=== PATIENT | female | born 1985 | race Caucasian/White ===

== ENCOUNTER 2016-04-28 05:52 | Emergency (ER) | payer OTHER ==
[~2016-04-28] VITALS: Ht 157.5 cm; Wt 63.5 kg
[2016-04-28 05:57] VITALS: BP 116/78
[2016-04-28] MEDS ORDERED: IBUPROFEN600 M1 PO (05:57)
[2016-04-28] MEDS ORDERED: PERCOCET 5-3251 EACH PO (05:57)
[2016-04-28] MEDS ORDERED: AUGMENTIN 875-1 EACH PO (05:57)
--- NOTE | 2016-04-28 05:57 | ED THROAT/DENTAL COMPLAINT ---
History of Present Illness General Chief Complaint: Sore Throat, Dental Pain Stated Complaint: "I HAVE TOOTH PAIN" Source: patient Exam Limitations: no limitations Vital Signs & Intake/Output Vital Signs & Intake/Output Vital Signs Date Time Temp Pulse Resp B/P Pulse O2 O2 Flow FiO2 Ox Delivery Rate 04/28 0557 98.1 106 18 116/78 98 Room Air Allergies Coded Allergies: NO KNOWN ALLERGIES (11/17/13) Reconcile Medications Amoxicillin/Potassium Clav (Augmentin 875-125 Tablet) 875 MG-125 MG TABLET 1 TAB PO BID dental infection x 10 days Ibuprofen 600 MG TABLET 1 TAB PO TID PRN pain with food Oxycodone HCl/Acetaminophen (Percocet 5-325 MG Tablet) 5 MG-325 MG TABLET 1 TAB PO 4XDP PRN PAIN six...[id number] Triage Note: PT TO TRIAGE C/O TOOTH PAIN. PT RECENTLY HAD A CROWN PUT AND HAD MULTIPLE ROOT CANALS AND COULD NOT DEAL WITH THE PAIN AFTER TAKING IBUPROFEN AND TYLENOL. PT NOW COMPLAINING OF RIGHT SIDED FACE PAIN THAT RADIATES UP TO NOSE. Triage Nurses Notes Reviewed? yes Onset: Gradual Duration: day(s): Timing: recent history Injury Environment: home Severity: moderate Modifying Factors: Improves With: medication. Associated Symptoms: right lower dental pain HPI: 30-year-old woman presents with right lower jaw pain. She states that she has a temporary crown over one of the molars. Last night it began hurting. She took some Tylenol and then some Motrin. This morning she felt like the pain got much worse. She thinks it might be infected. She's been having close follow-up with her dentist due to recurrent dental issues. She has no fever chills. She has no difficulty swallowing or eating or speaking. She is otherwise well. Past History Travel History Traveled to [place] past 21 day No Medical History Any Pertinent Medical History? see below for history Neurological: seizure Surgical History Surgical History: non-contributory Psychosocial History What is your primary language Russian Family History Hx Contributory? No Review of Systems Review of Systems Constitutional: Reports: no symptoms. EENTM: Reports: no symptoms. Respiratory: Reports: no symptoms. Cardiovascular: Reports: no symptoms. GI: Reports: no symptoms. Genitourinary: Reports: no symptoms. Musculoskeletal: Reports: no symptoms. Skin: Reports: no symptoms. Neurological/Psychological: Reports: no symptoms. Hematologic/Endocrine: Reports: no symptoms. Immunologic/Allergic: Reports: no symptoms. All Other Systems: Reviewed and Negative Physical Exam Physical Exam General Appearance: well developed/nourished, mild distress Head: atraumatic, normal appearance Eyes: Bilateral: normal appearance. Nose: normal inspection Mouth/Throat: pharynx normal, right lower jaw with temporary cap over one of the molars. Diffuse tenderness along the right lower gumline. No dottie abscess. No discharge. Neurologic/Psych: no motor/sensory deficits Skin: intact Core Measures ACS in differential dx? No Severe Sepsis Present: No Septic Shock Present: No Progress Differential Diagnosis: dental abscess versus dental infection versus toothache versus other Plan of Care: I sent a prescription for Augmentin, ibuprofen, Percocet to the [facility] in [place]. I encouraged her to follow up with her dentist later on today. Departure Departure Disposition: HOME OR SELF CARE Condition: Stable Clinical Impression Primary Impression: Dental infection Referrals: JOSÉ HOUSTON APRN (PCP/Family) Departure Forms: Customer Survey General Discharge Information Prescriptions: Current Visit Scripts Amoxicillin/Potassium Clav (Augmentin 875-125 Tablet) 1 TAB PO BID #20 TAB x 10 days Ibuprofen 1 TAB PO TID PRN pain #30 TAB with food Oxycodone HCl/Acetaminophen (Percocet 5-325 MG Tablet) 1 TAB PO 4XDP PRN PAIN #6 TAB six...[id number]
== END 2016-04-28 05:59 ==
LOC: ERH 05:52
DX: K04.7 Periapical abscess without sinus (principal)